=== PATIENT | male | born 1985 | race Hispanic/Latino ===

== ENCOUNTER 2016-12-25 10:12 | Day surgery (SDC) | payer OTHER ==
[2016-12-22 15:16] VITALS: BMI 30.7
[2016-12-25 12:06] LABS: #Basophils 0.1 thou/uL (0.0-0.2); #Eosinphils 0.2 thou/uL (0.0-0.7); #Lymphocytes 2.8 thou/uL (1.20-3.40); #Monocytes 0.6 thou/uL (0.11-0.59); %Basophils 0.9 % (0.0-1.0); %Eosinophils 2.7 % (0.0-10.0); %Monocytes 7.3 % (0.0-10.0); Hematocrit 43.3 % (42.0-52.0); Mean Platelet Volume 6.8 fL (7.4-10.4); Red Blood Cell (RBC) Count 4.97 mill/uL (4.70-6.10); White Blood Cell (WBC) Count 7.6 thou/uL (4.8-10.8)
[2016-12-25] MEDS ORDERED: CEFAZOLIN/Water 2 GM/20 ML SYRINGE ONE (12:20)
[2016-12-25 12:26] LABS: Anion Gap 12 mmol/L (10-20); BUN (Urea Nitrogen) 17 mg/dL (8.9-20.6); Calc. Creatinine Clearance 139 mL/min (70-130); Calcium 9.3 mg/dL (7.8-10.44); Carbon Dioxide 24 mmol/L (22-29); Chloride 104 mmol/L (98-107); Estimated GFR-MDRD Greater than 90
[2016-12-25] MEDS ORDERED: Fentanyl 100 MCG/2 ML VIAL ONE ×2 (13:16→15:18)
[2016-12-25] MEDS ORDERED: Bupivacaine/Epinephrine 0.25% 30 ML VIAL ONE (13:17)
[2016-12-25] MEDS ORDERED: Dexamethasone 20 MG/5 ML VIAL ONE (14:00)
[2016-12-25] MEDS ORDERED: Ketorolac Tromethamine 30 MG/ML VIAL ONE (14:00)
[2016-12-25] MEDS ORDERED: Lidocaine 2% PF 10 ML AMP (For Epidural Use) ONE (14:00)
[2016-12-25] MEDS ORDERED: Ondansetron HCl/PF 4 MG/2 ML Vial ONE (14:00)
[2016-12-25] MEDS ORDERED: Metoclopramide HCl 10 MG/2 ML VIAL ONE (14:00)
[2016-12-25] MEDS ORDERED: Propofol 200 MG/20 ML VIAL ONE (14:00)
[2016-12-25] MEDS ORDERED: HYDROcodone/Acetaminophen 5/325 mg Tablet ONE (16:31)
--- NOTE | 2016-12-25 17:00 | OP ---
DATE OF PROCEDURE: 12/25/2016 PREOPERATIVE DIAGNOSIS: Tearing of the peripheral aspect of the body of the medial meniscus of the l eft knee. POSTOPERATIVE DIAGNOSIS: Tearing of the peripheral aspect of the body of the medial meniscus of the left knee. PROCEDURE: Arthroscopy of left knee with repair of the peripheral tear of the body of the medial men iscus. SURGEON: Angel Luis Gomez M.D. ANESTHESIA: General. TECHNIQUE: The patient was given preoperative IV antibiotics, taken to the operating room, placed in supine position. Satisfactory general anesthesia was performed. Left lower extremity was placed in a leg rosa. Leg were sterilely prepped and draped in the usual fashion. After exsanguination, th e tourniquet was raised to 300 mmHg. The knee was scoped through the usual inferomedial and inferola teral portals. Upon entering the suprapatellar pouch, the patient had no synovitis present. Patello femoral joint appeared normal. Articular cartilage looked very good. Needle and lateral gutters wer e free of loose bodies. Lateral compartment had normal articular cartilage over the femur and tibia, and lateral meniscus was thoroughly inspected and probed and was free of pathology. The intercondyl ar notch revealed an intact anterior cruciate ligament. Medial compartment had normal articular cart ilage on the femur and tibia. The anterior horn and posterior horn of the medial meniscus was inspec doug and probed and was free of pathology. There was some tearing in the peripheral aspect of the bod y of the medial meniscus and a repair was performed using two Arthrex SpeedCinch sutures with the anc hors and this provided excellent repair of the medial meniscus. During the procedure, all the debrid ements were irrigated out of the knee joint. The instruments were removed. The portals were closed with 3-0 Rapide. The knee joint was injected with 30 mL of 0.25% Marcaine with epinephrine. A steri le dressing was applied. The tourniquet was released. Leg was taken out of the leg rosa. The pat ient was awakened, extubated, and transferred to the recovery room in stable condition. ESTIMATED BLOOD LOSS: None. COMPLICATIONS: None. TOURNIQUET TIME: 42 minutes.
== END 2016-12-25 18:28 | disposition home or self-care (01) ==
LOC: SDC 10:12
PROVIDERS: ATTEND Orthopaedic Surgery
PROC: 0SQD4ZZ Repair Left Knee Joint, Percutaneous Endoscopic Approach (ICD-10-PCS; principal; 2016-12-25)
DX: S83.242A Other tear of medial meniscus, current injury, left knee, initial encounter (principal); F17.210 Nicotine dependence, cigarettes, uncomplicated
CPT/HCPCS: 36415; 80048; 85025; 96374; J0131; J1100; J1885; J2001; J2270; J2405; J2704; J2765; J3010

== ENCOUNTER 2020-12-26 12:51 | Observation (INO) | payer OTHER, SELFPAY ==
[2020-12-26] MEDS ORDERED: Morphine 4 MG/ML VIAL ONE (13:19)
[2020-12-26] MEDS ORDERED: Ondansetron PF 4 MG/2 ML Vial ONE ×2 (13:19→17:05)
[2020-12-26 14:10] LABS: #Eosinphils 0.1 thou/uL (0.0-0.7); #Lymphocytes 1.8 thou/uL (1.20-3.40); #Monocytes 0.9 thou/uL (0.11-0.59); #Neutrophils 8.8 thou/uL (1.40-6.50); %Basophils 0.4 % (0.0-1.0); %Eosinophils 0.5 % (0.0-10.0); %Lymphocytes 15.2 % (21.0-51.0); %Neutrophils 75.9 % (42.0-75.0); Hemoglobin 15.1 g/dL (14.0-18.0); Mean Corpuscular HGB CONC 34.4 g/dL (32.0-36.0); Mean Corpuscular Hemoglobin 30.3 pg (27.0-31.0); Mean Corpuscular Volume 87.9 fL (78.0-98.0); Mean Platelet Volume 6.8 fL (7.4-10.4); Platelet Count 269 thou/uL (130-400); RBC Distribution Width 11.9 % (11.5-14.5); Red Blood Cell (RBC) Count 4.99 mill/uL (4.70-6.10); White Blood Cell (WBC) Count 11.6 thou/uL (4.8-10.8)
[2020-12-26 14:23] LABS: PTT 27.3 sec (22.9-36.1); Prothrombin Time 13.7 sec (12.0-14.7)
[2020-12-26] MEDS ORDERED: Ondansetron PF 4 MG/2 ML Vial IVP PRN ×2 (14:27→16:56)
[2020-12-26] MEDS ORDERED: hydrALAZINE 20 MG/ML VIAL SLOW IVP PRN (14:27)
[2020-12-26] MEDS ORDERED: traMADol HCl 50 MG TAB PO PRN (14:29)
[2020-12-26] MEDS ORDERED: Cyclobenzaprine 10 MG TAB PO PRN (14:29)
[2020-12-26 14:30] LABS: ALT (SGPT) 53 U/L (8-55); AST (SGOT) 37 U/L (5-34); Albumin 4.1 g/dL (3.5-5.0); Alkaline Phosphatase 101 U/L (40-110); Anion Gap 14 mmol/L (10-20); BUN (Urea Nitrogen) 14 mg/dL (8.9-20.6); Bilirubin, Total 0.4 mg/dL (0.2-1.2); Calc. Creatinine Clearance 0 mL/min (70-130); Carbon Dioxide 21 mmol/L (22-29); Chloride 104 mmol/L (98-107); Globulin 3.4 g/dL (2.4-3.5); Glucose 101 mg/dL (70-105); Potassium 4.4 mmol/L (3.5-5.1); Protein, Total 7.5 g/dL (6.0-8.3); Sodium 135 mmol/L (136-145)
[2020-12-26] MEDS ORDERED: Morphine 4 MG/ML VIAL SLOW IVP PRN (14:47)
[2020-12-26] MEDS ORDERED: Ibuprofen 200 MG TAB PO PRN (14:53)
[2020-12-26 15:24] LABS: SARS-CoV-2 NAA Rapid Test Not Detected (NotDetected)
[2020-12-26] MEDS ORDERED: SUGAMMADEX SODIUM 200 MG/2 ML VIAL ONE (16:08)
[2020-12-26 16:09] VITALS: BMI 29.0
[2020-12-26] MEDS ORDERED: ceFAZolin Sodium/D5W 2 GM in Premix Bag 1 BAG IVPB SCH (16:15)
[2020-12-26] MEDS: Acetaminophen 500 MG TAB PO SCH ×2 (16:30→21:36)
[2020-12-26] MEDS: Sodium Chloride 0.9% 1,000 ML IV SCH ×2 (16:33→21:39)
[2020-12-26] MEDS ORDERED: Midazolam HCl 2 mg/2 ml Vial ONE (16:49)
[2020-12-26] MEDS ORDERED: Lidocaine 2% Jelly 5 ML TUBE ONE (16:49)
[2020-12-26] MEDS ORDERED: Fentanyl 100 MCG/2 ML VIAL ONE ×2 (16:49→18:58)
[2020-12-26] MEDS ORDERED: Dexmedetomidine 200 MCG/2 ML VIAL ONE (16:50)
[2020-12-26] MEDS ORDERED: ceFAZolin 2 GM/DEX 5% 100 ML BAG ONE (16:52)
[2020-12-26] MEDS ORDERED: diphenhydrAMINE 25 MG CAP PO PRN (16:56)
[2020-12-26] MEDS ORDERED: Promethazine HCl 25 MG/ML VIAL IM PRN ×2 (16:56)
[2020-12-26] MEDS ORDERED: Naloxone HCl 0.4 mg/ml Vial IV PRN (16:56)
[2020-12-26] MEDS ORDERED: Promethazine HCl 25 MG/ML VIAL IVPB PRN (16:56)
[2020-12-26] MEDS ORDERED: Ondansetron HCl/PF 4 MG/2 ML Vial IVP PRN (16:56)
[2020-12-26] MEDS ORDERED: diphenhydrAMINE 50 MG/ML VIAL IVP PRN (16:56)
[2020-12-26] MEDS ORDERED: Meperidine HCl/PF 25 MG/ML VIAL SLOW IVP PRN (16:56)
[2020-12-26] MEDS ORDERED: fentaNYL Citrate/PF 2,000 MCG in Sodium Chloride 0.9% 60 ML IV PRN (16:56)
[2020-12-26] MEDS ORDERED: diphenhydrAMINE 50 MG/ML VIAL IM PRN (16:56)
[2020-12-26] MEDS ORDERED: Zolpidem Tartrate 5 MG TAB PO PRN (16:56)
[2020-12-26] MEDS ORDERED: Communication Order-Pharmacy FS PRN (17:00)
[2020-12-26] MEDS ORDERED: PROPOFOL 200 MG/20 ML VIAL ONE (17:05)
[2020-12-26] MEDS ORDERED: Rocuronium Bromide 10 MG/ML (10ML VIAL) ONE (17:05)
[2020-12-26] MEDS ORDERED: Dexamethasone 20 MG/5 ML VIAL ONE (17:05)
[2020-12-26] MEDS ORDERED: Ketorolac Tromethamine 30 MG/ML VIAL ONE (17:05)
[2020-12-26] MEDS ORDERED: Lidocaine 1% PF 5 ML VIAL ONE (17:05)
[2020-12-26] MEDS ORDERED: Glycopyrrolate 0.2 MG/ML 5 ML SYRINGE ONE (17:05)
[2020-12-26] MEDS ORDERED: Succinylcholine 200 MG/10 ml SYRINGE FS ONE (17:05)
[2020-12-26] MEDS ORDERED: traMADol HCl 50 MG TAB PO SCH (18:00)
[2020-12-26] MEDS ORDERED: Meperidine HCl/PF 25 MG/ML VIAL ONE (18:42)
[2020-12-26] MEDS ORDERED: Famotidine/PF 20 mg/2ml Vial SLOW IVP SCH (21:00)
[2020-12-26] MEDS: Senokot S 8.6-50 MG TAB PO SCH (21:37)
[2020-12-27] MEDS: Acetaminophen 500 MG TAB PO SCH ×2 (03:23→08:24)
[2020-12-27 06:20] LABS: #Lymphocytes 1.4 thou/uL (1.20-3.40); #Monocytes 0.7 thou/uL (0.11-0.59); #Neutrophils 11.9 thou/uL (1.40-6.50); %Basophils 0.1 % (0.0-1.0); %Eosinophils 0.2 % (0.0-10.0); %Lymphocytes 9.9 % (21.0-51.0); %Monocytes 4.9 % (0.0-10.0); %Neutrophils 84.9 % (42.0-75.0); Hemoglobin 13.3 g/dL (14.0-18.0); Mean Corpuscular HGB CONC 34.1 g/dL (32.0-36.0); Mean Corpuscular Hemoglobin 30.5 pg (27.0-31.0); Mean Corpuscular Volume 89.3 fL (78.0-98.0); Mean Platelet Volume 7.1 fL (7.4-10.4); Platelet Count 269 thou/uL (130-400); RBC Distribution Width 11.9 % (11.5-14.5); Red Blood Cell (RBC) Count 4.35 mill/uL (4.70-6.10)
[2020-12-27 06:46] LABS: Anion Gap 10 mmol/L (10-20); BUN (Urea Nitrogen) 12 mg/dL (8.9-20.6); Calc. Creatinine Clearance 143 mL/min (70-130); Calcium 8.8 mg/dL (7.8-10.44); Carbon Dioxide 23 mmol/L (22-29); Chloride 107 mmol/L (98-107); Glucose 129 mg/dL (70-105); Magnesium 1.9 mg/dL (1.6-2.6); Phosphorus 2.4 mg/dL (2.3-4.7); Potassium 4.4 mmol/L (3.5-5.1); Sodium 136 mmol/L (136-145)
[2020-12-27] MEDS: Senokot S 8.6-50 MG TAB PO SCH (08:24)
[2020-12-27] MEDS ORDERED: Polyethylene Glycol 3350 17 GM Packet PO SCH (09:00)
[2020-12-27] MEDS ORDERED: Multivitamin W/ Minerals 1 TAB PO SCH (09:00)
[2020-12-27] MEDS ORDERED: traMADol HCl 50 MG TAB PO PRN (11:11)
[2020-12-27] MEDS ORDERED: Cyclobenzaprine 10 MG TAB PO PRN (11:11)
[2020-12-27] MEDS ORDERED: traMADol HCl 50 MG TAB PO SCH (12:00)
[2020-12-27] MEDS ORDERED: Gabapentin 300 MG CAP PO SCH (15:00)
[2020-12-27 16:08] VITALS: BP 115/69; TEMP 98.4
== END 2020-12-27 16:35 | disposition home or self-care (01) ==
LOC: ERS 12:51 → UNDOADMOB 14:24 → SURG A 14:24 → EEVIPCON 14:24 → SURG A 15:29
PROVIDERS: ADMIT Surgery; ATTEND Surgery
PROC: 0QSH06Z Reposition Left Tibia with Intramedullary Internal Fixation Device, Open Approach (ICD-10-PCS; principal; 2020-12-26)
DX: S82.242A Displaced spiral fracture of shaft of left tibia, initial encounter for closed fracture (principal); S82.492A Other fracture of shaft of left fibula, initial encounter for closed fracture; G89.11 Acute pain due to trauma; F17.210 Nicotine dependence, cigarettes, uncomplicated; Z20.822 Contact with and (suspected) exposure to COVID-19; Z98.890 Other specified postprocedural states; W01.0XXA Fall on same level from slipping, tripping and stumbling without subsequent striking against object, initial encounter; Y93.66 Activity, soccer
CPT/HCPCS: 36415; 76000; 80048; 80053; 83735; 84100; 85025; 85610; 85730; 86850; 86900; 86901; 96374; 96375; C1713; G0378; G0390; J1100; J1885; J2175; J2250; J2270; J2405; J2704; J3010; J7050; U0002